=== PATIENT | male | born 1975 | race African-American/Black ===

== ENCOUNTER 2020-03-14 22:06 | Emergency (ER) | payer SELFPAY ==
[~2020-03-14] VITALS: Ht 185.4 cm; Wt 119.5 kg
[2020-03-14 22:23] VITALS: Ht 185.4 cm; Wt 119.5 kg
[2020-03-14] MEDS ORDERED: PRINIVIL20 MG PO (22:25)
[2020-03-14] MEDS ORDERED: DILTIAZEM 24HR120 M3 PO (22:25)
[2020-03-14] MEDS ORDERED: PRAVASTATIN SOD10 MG PO (22:26)
[2020-03-14] MEDS ORDERED: GLIMEPIRIDE1 MG PO (22:26)
[2020-03-14] MEDS ORDERED: PIOGLITAZONE15 MG PO (22:26)
[2020-03-15 00:05] LABS: HEMOGLOBIN 11.3 g/dL (13.5-17.5); LYMPHOCYTES 19.6 % (15-50); MCH 22.7 pg (26.0-34.0); MCHC 30.5 g/dL (31.0-37.0); MCV 74.3 fL (80.0-100.0); MEAN PLATELET VOLUME 9.5 fL (7.4-10.4); NEUTROPHILS 72.7 % (40-80); PLATELET COUNT 223 10x3/uL (130-400); RBC 4.98 10x6/uL (4.20-6.10); RDW 16.6 % (11.5-14.5); WBC 5.4 10x3/uL (4.8-10.8)
[2020-03-15 00:19] LABS: CALC OSMOLALITY 280 mosm/kg (275-300); CALCIUM 8.1 mg/dL (8.5-10.1); CHLORIDE - SERUM 106 mmol/L (98-107); CREATININE - SERUM 1.2 mg/dL (0.6-1.3); GLUCOSE 118 mg/dL (74-106); POTASSIUM - SERUM 3.7 mmol/L (3.5-5.1); SODIUM 139 mmol/L (136-145); UREA NITROGEN 17 mg/dL (7-18); eGFR NON AFRICAN AMERICAN 69 mL/min (90-120)
[2020-03-15 00:31] LABS: ALBUMIN 3.7 g/dL (3.4-5.0); ALKALINE PHOSPHATASE 70 U/L (30-120); ALT (SGPT) 25 U/L (10-68); BILIRUBIN - TOTAL 0.15 mg/dL (0.2-1.3); C-REACTIVE PROTEIN 0.5 mg/dL (0.0-0.9); CKMB 2.1 U/L (0.0-3.6); CREATINE KINASE 471 UL (21-232); PROTEIN - SERUM 7.6 g/dL (6.4-8.2); TROPONIN-I < 0.017 ng/mL (0.000-0.060)
[2020-03-15] MEDS ORDERED: OLOPATADINE HCL5 ML EACH EYE (00:48)
[2020-03-15 01:01] VITALS: BP 148/94
== END 2020-03-15 01:03 | disposition home or self-care (01) ==
LOC: D.ER 22:06
PROVIDERS: Family Medicine
DX: J30.89 Other allergic rhinitis (principal); H10.10 Acute atopic conjunctivitis, unspecified eye; I10 Essential (primary) hypertension; E11.9 Type 2 diabetes mellitus without complications; Z79.84 Long term (current) use of oral hypoglycemic drugs

== ENCOUNTER → 2021-04-01 08:38 | Outpatient (CLI) | payer BC ==
[2020-03-14 22:23] VITALS: BMI 34.7
[~2021-04-01 08:38] MED LIST: DILTIAZEM 24HR120 M3 PO; GLIMEPIRIDE1 MG PO; OLOPATADINE HCL5 ML EACH EYE; PIOGLITAZONE15 MG PO; PRAVASTATIN SOD10 MG PO; PRINIVIL20 MG PO
== END | disposition home or self-care (01) ==
LOC: D.HCCECHO 08:38
PROVIDERS: ATTEND Internal Medicine Cardiovascular Disease
DX: R00.2 Palpitations (principal)